=== PATIENT | male | born 1965 | race Caucasian/White ===

== ENCOUNTER 2023-03-29 09:18 | Outpatient (AMB) | payer OTHER, SELFPAY ==
--- NOTE | 2023-03-29 10:05 | MHC.OFFWIV ---
Intake Vital Signs 03/29/23 10:12 Height 6 ft 1 in Weight 128.367 kg BMI 37.3 BP 136/90 H Blood Pressure Location Lt brachial Position Sitting Pulse 66 Pulse Source Pulse Oximeter Pulse Oximetry (%) 98 Oxygen Delivery Method Room Air Intake Visit Reasons: [employer] cut RT pinky wrapped in tape Intake Note: Patient here because he cut his pinky of right hand yesterday with aluminum foil box. no pain and believes it may need stitches. Patient Tobacco Use Status: Former Tobacco user Allergies ciprofloxacin Adverse Reaction (Mild, Verified 03/29/23 10:11) unknown Do you need a note to return to daycare/school/sports/work: No HPI HPI Comments History of Present Illness Details [id number] 57-year-old male presents with laceration to right little finger, happened yesterday at 06:30, patient reports he dropped an aluminum foil box that was heavy and he cut himself with the metal part. He is not up-to-date on tetanus shot. He wrapped it last night and cleaned it. Physical exam significant for Skin warm and dry.? Normal skin color.? Normal skin turgor.?+ 2 cm linear clean laceration to dorsal proximal aspect to right pinky finger < 2 second cap refil to all UE digits. No wrist drop 2+ radial pulses . Full range of motion to all fingers. Painless. This is likely simple laceration that can be repaired with Dermabond as wound edges are approximating well. No signs of foreign body. No signs of ligament or tendon injury. No signs of fracture dislocation. Dermabond, Steri-Strips and finger immobilizer applied. Educated patient on diagnosis and treatment plan, answered all question, patient verbalizes understanding. At this time patient will be discharged home, advised to return with new or worsening symptoms. Educated on worrisome signs and symptoms and when to return. At this time I feel comfortable discharge home. Patient received tetanus shot prior to discharge [facility] Social History Patient Tobacco Use Status: Former Tobacco user Review of Systems Const Details: Constitutional : No Fever, No Chills, Cardiovascular : No Chest Pain, No SOB Respiratory : No Dyspnea Gastrointestinal : No abdominal pain Musculoskeletal : No Joint Swelling Skin : No rash, positive skin laceration Neuro : No Weakness, No Numbness Psych : No SI/HI All systems reviewed & are unremarkable except as noted in HPI and below Physical Exam Vital Signs: Last Vital Signs Pulse 66 03/29/23 10:12 BP 136/90 H 03/29/23 10:12 Pulse Ox 98 03/29/23 10:12 Oxygen Delivery Method Room Air 03/29/23 10:12 BMI result Body Mass Index 37.3 Vital signs stable Appearance: Alert.? Oriented X3.? No acute distress.? Head: Normocephalic, atraumatic, no step-offs or deformities Eyes: Pupils equal, round and reactive to light.? Neck: Normal inspection.? Neck supple.? CVS: Pulses normal.? Respiratory: No respiratory distress. Skin: Skin warm and dry.? Normal skin color.? Normal skin turgor.?+ 2 cm linear clean laceration to dorsal proximal aspect to right pinky finger < 2 second cap refil to all UE digits. No wrist drop 2+ radial pulses . Full range of motion to all fingers. Painless. Extremities: No lower extremity edema.? No calf ttp. 5/5 strength to bilateral upper and lower extremities Neuro: Oriented X 3.? No motor deficit.? No sensory deficit. CN 2-12 intact Assessment & Plan Assessment & Plan (1) Laceration of right little finger w/o foreign body w/o damage to nail: Code(s): S61.216A - Laceration without foreign body of right little finger without damage to nail, initial encounter Plan Take your medications as prescribed. If you were prescribed antibiotics today, it is important that you take your medication to their entirety, do not skip any doses, do not finish them early. Follow-up with your primary care provider this week. Return to the emergency department with new or worsening symptoms. Such as fevers, chills, chest pain, shortness of breath, nausea, vomiting, dizziness, headache, vision changes, lethargy In case of emergency call 911 Keep finger splint on for 24 hours. Orders: Orders TDaP Immunization Today S61.216A - Laceration without foreign body of right little finger without damage to nail, initial encounter, Z23 - Encounter for immunization Medications: New Boostrix Tdap (diphth,pertus(acell),tetanus) 0.5 mL IM ONCE 0.5 mL 0RF NS S61.216A - Laceration without foreign body of right little finger without damage to nail, initial encounter, Z23 - Encounter for immunization Coding Level of Care Code Est Pt Level 3 (89295) Diagnoses Laceration of right little finger w/o foreign body w/o damage to nail S61.216A
[2023-03-29 10:12] VITALS: BP 136/90; PULSE 66; O2SAT 98; BMI 37.3
== END 2023-03-29 11:07 | disposition home or self-care (01) ==
PROVIDERS: PCP Family Medicine; Visit Provider Physician Assistant
DX: S61.216A Laceration without foreign body of right little finger without damage to nail, initial encounter (principal)
CPT/HCPCS: 12001; 90471; 90715; 99051; 99213